=== PATIENT | female | born 1980 | race Caucasian/White ===

== ENCOUNTER 2022-01-14 18:05 | Emergency (ER) | payer OTHER, SELFPAY ==
[2022-01-14 18:24] VITALS: PULSE 70; RESP 20; TEMP 37; O2SAT 98
[2022-01-14 20:27] LABS: Appearance Urine Cloudy (Clear); Bilirubin Urine Negative (Negative); Blood Urine 2+ (Negative); Color Urine Yellow (Yellow); Glucose Urine UA Negative (Negative); Ketones Urine Negative (Negative); Leukocyte Esterase Ur 2+ LEU/UL (Negative); Nitrate Urine Positive (Negative); Protein Urine 1+ mg/dL (Negative); Specific Grav Ur 1.025 (1.001-1.035); Urobilinogen Urine 0.2 mg/dL (<2.0)
[2022-01-14 20:37] LABS: Mucus Urine Moderate /lpf; Squamous Epithelial Cell Urine Rare /hpf (Few); WBC Urine >75 /hpf
[2022-01-14 20:42] LABS: Add Urine Microscopic? YES
--- NOTE | 2022-01-14 21:03 | ED.FEMALEGU ---
HPI - Female Genitourinary General Chief complaint: Urogenital-Female Stated complaint: burning urination Time Seen by Provider: 01/14/22 20:54 Source: patient and family History of Present Illness HPI Narrative: Patient presents with pain with urination and urinary incontinence. Patient reports symptoms been present for the past couple days but the pain appears to be getting worse she called her family and they brought her to the ER for further evaluation. Reports she had issues with urination in the past but then will change the diet increase water intake and symptoms usually resolve today since there was pain there was concern for urinary tract infection. Patient denies any fevers abdominal pain back pain nausea vomiting or diarrhea. Related Data Allergies Allergy/AdvReac Type Severity Reaction Status Date / Time No Known Allergies Allergy Unverified 02/24/16 04:20 Review of Systems Review of Systems: CONSTITUTIONAL: Denies fever, chills, or sweats. EYES: Denies visual changes, redness, or discharge. ENT: Denies rhinorrhea, congestion, sore throat, or otalgia. CARDIOVASCULAR: Denies chest pain, palpitations, or edema. RESPIRATORY: Denies cough or dyspnea. GASTROINTESTINAL: Denies abdominal pain, nausea, vomiting, or diarrhea. GENITOURINARY: Reports dysuria SKIN: Denies rash or itching. MUSCULOSKELETAL: Denies back pain, joint pain, or myalgia. NEUROLOGIC: Denies headache, numbness, dizziness, or weakness. PSYCHIATRIC: Denies anxiety or depression. All systems reviewed & are unremarkable except as noted in HPI and below PMFSH Past Medical History Medical History (Updated 01/14/22 @ 21:09 by Dez Pierson MD) Cerebral palsy Social History Social History (Updated 01/14/22 @ 21:04 by Dez Pierson MD) Smoking status: Never smoker Alcohol intake: never Substance use: never Exam Narrative: GENERAL: Well-appearing, well-nourished, and in no acute distress. HEAD: Normocephalic, atraumatic. EYES: PERRLA and EOMI. ENT: Nares clear, no rhinorrhea or epistaxis. Mucous membranes moist. NECK: Supple. No masses. No JVD ABDOMEN: Soft, nontender, nondistended EXTREMITIES: Normal range of motion. No edema. SKIN: Warm, dry, no rash. NEURO: Dyskinetic movements in all extremities alert and oriented x3. PSYCH: Normal mood and affect. Course Vital Signs Vital signs: Vital Signs Temperature 37.0 C 01/14/22 18:24 Pulse Rate 70 01/14/22 18:24 Respiratory Rate 20 01/14/22 18:24 Pulse Oximetry 98 01/14/22 18:24 Temperature 37.0 C 01/14/22 18:24 Pulse Rate 75 01/14/22 21:30 Respiratory Rate 18 01/14/22 21:30 Blood Pressure 137/84 01/14/22 21:30 Pulse Oximetry 94 01/14/22 21:30 MDM - Female Genitourinary MDM Narrative Medical decision making narrative: H&P as above, vss, pt looks clinically well, exam without back pain or abdominal pain, labs concerning for infected urine, additional labs/img considered, symptomatic relief available as needed, on reevaluation pt continues to looks clinically well. Suspect UTI, dns pyelonephritis, severe sepsis, severe dehydration. plan to tx/monitor as op w/ pcm f/u findings/plan discussed with pt, pt agree/comfortable with plan, return precautions given Lab Data Labs: Lab Results 01/14/22 Range/Units 20:09 Urine Color Yellow (Yellow) Urine Appearance Cloudy H (Clear) Urine pH 6.0 (5.0-9.0) Ur Specific [place] 1.025 (1.001-1.035) Urine Protein 1+ H (Negative) mg/dL Urine Glucose (UA) Negative (Negative) mg/dL Urine Ketones Negative (Negative) mg/dL Ur Blood (Man) 2+ H (Negative) Urine Nitrate Positive H (Negative) Urine Bilirubin Negative (Negative) Urine Urobilinogen 0.2 (<2.0) mg/dL Leukocyte Esterase Rfl 2+ H (Negative) ASAEL/UL Urine RBC 11-20 H (0-2) /hpf Urine WBC >75 H /hpf Ur Squamous Epith Cells Rare (Few) /hpf Urine Mucus Moderate H /lpf Discharge Plan Discharge Cl
[2022-01-14] MEDS: CEPHALEXIN 500 MG CAPSULE PO (21:22)
[2022-01-14 21:30] VITALS: BP 137/84; PULSE 75; RESP 18; O2SAT 94
== END 2022-01-14 21:39 | disposition home or self-care (01) ==
PROVIDERS: Emergency Provider Emergency Medicine
DX: G80.9 Cerebral palsy, unspecified (principal); N39.0 Urinary tract infection, site not specified
CPT/HCPCS: 81001; 87077; 87086; 87186; 99283; A9270